=== PATIENT | male | born 1995 | race Caucasian/White ===

== ENCOUNTER 2018-01-30 08:31 | Day surgery (SDC) | payer BC ==
[2018-01-29 13:02] VITALS: BMI 25.9
--- NOTE | 2018-01-29 18:28 | HP ---
HISTORY OF PRESENT ILLNESS 22 year-old male with no significant PMH presents for a pre-op evaluation. Patient is scheduled for a left heel excision of a foreign body. PCP: [facility], sees medics as needed Prior Medical History None Prior Surgical History None Recent travel: [facility] in past month Family History: mother and father a&w; two sisters a&w Social History: student at [employer] and member of [place] [employer] Smoking: quit summer 2016 Alcohol: social beer Drugs: no REVIEW OF SYSTEMS CONSTITUTIONAL: Absent: fever, chills, diaphoresis, generalized weakness, malaise, loss of appetite, weight change HEENT: Absent: rhinorrhea, nasal congestion, throat pain, throat swelling, difficulty swallowing, mouth swelling, ear pain, eye pain, visual changes CARDIOVASCULAR: Absent: chest pain, syncope, palpitations, irregular heart rate, lightheadedness , peripheral edema RESPIRATORY: Absent: cough, shortness of breath, dyspnea with exertion, orthopnea, wheezing, stridor, hemoptysis GASTROINTESTINAL: Absent: abdominal pain, abdominal distension, nausea, vomiting, diarrhea, constipation, melena, hematochezia GENITOURINARY: Absent: dysuria, frequency, urgency, hesitancy, hematuria, flank pain, genital pain MUSCULOSKELETAL: +intermittent stinging pain left heel, had infection with swelling which resolved after PO antibiotics Absent: myalgia, arthralgia, joint swelling, back pain, neck pain SKIN: Absent: rash, itching, pallor HEMATOLOGIC/IMMUNOLOGIC: Absent: easy bleeding, easy bruising, lymphadenopathy, frequent infections ENDOCRINE: Absent: unexplained weight gain, unexplained weight loss, heat intolerance, cold intolerance NEUROLOGIC: Absent: headache, focal weakness or paresthesias, dizziness, unsteady gait, seizure, mental status changes, bladder or bowel incontinence PSYCHIATRIC: Absent: anxiety, depression, suicidal or homicidal ideation, hallucinations. PHYSICAL EXAMINATION: Vitals: T 97.6, BP 113/55, p75, SpO2 99% room air GENERAL: Awake, alert, and fully oriented, in no acute distress. HEAD: Normal with no signs of trauma. EYES: Pupils equal, round and reactive to light, extraocular movements intact, sclera anicteric, conjunctiva clear. No lid lag. EARS, NOSE, THROAT: Ears normal, nares patent, oropharynx clear without exudates. Moist mucous membranes. NECK: Normal range of motion, supple without lymphadenopathy, JVD, or masses. LUNGS: Breath sounds equal, clear to auscultation bilaterally. No wheezes, and no crackles. No accessory muscle use. HEART: Regular rate and rhythm, normal S1 and S2 without murmur, rub or gallop. ABDOMEN: Soft, nontender, not distended, normoactive bowel sounds, no guarding, no rebound, no masses. No hepatomegaly or splenomegaly. MUSCULOSKELETAL: Normal range of motion at all joints. No bony deformities or tenderness. No CVA tenderness. UPPER EXTREMITIES: 2+ pulses, warm, well-perfused. No cyanosis. No clubbing. No peripheral edema. LOWER EXTREMITIES: 2+ pulses, warm, well-perfused. No calf tenderness. No peripheral edema LEFT HEEL: small scab on top of firm tissue; epidermal layer sloughed off; no erythema, no warmth, no tenderness NEUROLOGICAL: Cranial nerves II-XII intact. Normal speech. Normal gait. Walks with left boot. PSYCHIATRIC: Cooperative. Good eye contact. Appropriate mood and affect. SKIN: Warm, dry, normal turgor, no rashes or lesions noted, normal capillary refill. ASSESSMENT/PLAN: 22 year-old male with no significant PMH scheduled for left heel incision and removal of a foreign body. Left heel foreign body --for incision and removal --on no regular medications --no previous exposure to anesthesia --no cardiac history; not hypertensive --no identified familial risk factors
[~2018-01-30 08:31] MED LIST: BUPIVACAINE HCL/PF 0.25% (2.5MG/ML) 10 ML VIAL IJ ONE
[2018-01-30] MEDS ORDERED: BUPIVACAINE HCL/PF 0.25% (2.5MG/ML) 10 ML VIAL ONE (12:04)
[2018-01-30] MEDS ORDERED: LIDOCAINE HCL 2% (20ML MULTI-DOSE VIAL) NR ONE (12:05)
[2018-01-30] MEDS ORDERED: MIDAZOLAM HCL 2 MG/2 ML SINGLE DOSE VIAL ONE ×2 (12:13)
[2018-01-30] MEDS ORDERED: PROPOFOL 20 ML ONE (12:13)
[2018-01-30] MEDS ORDERED: LIDOCAINE HCL 2% (50ML VIAL) INF ONE (12:26)
[2018-01-30] MEDS ORDERED: BUPIVACAINE HCL/PF 0.25% (2.5MG/ML) 10 ML VIAL IJ ONE (13:04)
[2018-01-30] MEDS ORDERED: ONDANSETRON 4 MG/2 ML VIAL IVPUSH PRN (13:22)
[2018-01-30] MEDS ORDERED: oxyCODONE HCL 5 MG TABLET PO PRN (13:22)
[2018-01-30] MEDS ORDERED: IBUPROFEN 800 MG/8 ML IJ IVPB PRN (13:22)
[2018-01-30] MEDS ORDERED: LACTATED RINGERS SOLUTION 1,000 ML IV SCH (13:30)
[2018-01-30 14:12] VITALS: TEMP 98.1
--- NOTE | 2018-01-30 15:04 | OP ---
DATE OF OPERATION: 01/30/2018 SURGEON: Mayco Sorensen DPM FOOD PREPARATION WORKER: PREOPERATIVE DIAGNOSIS: Left foot foreign body, plantar heel, and excision of scar tissue. POSTOPERATIVE DIAGNOSIS: Left foot foreign body, plantar heel, and excision of scar tissue. PROCEDURE: Left foot plantar heel foreign body removal and excision of scar tissue. ESTIMATED BLOOD LOSS: 1 mL HEMOSTASIS: Pneumatic ankle tourniquet 250 mmHg. ANESTHESIA: MAC with local anesthesia. Patient was brought to the operating room table and placed in a supine position. After adequate IV sedation was administered, local anesthesia of 1% lidocaine plain 18 mL was administered to the left tibial nerve. The left foot was then draped and prepped in the usual aseptic fashion, and after exsanguination and careful placement of the ankle of cast passing, the pneumatic ankle tourniquet was inflated to 250 mmHg. At this time, a curvilinear incision was made on the plantar heel aspect and the incision was deepened through subcutaneous tissue and a semi-elliptical incision was made using number-15 blade. The scar tissue and foreign body were removed in toto and passed for specimen. The surgical site was then flushed with normal saline solution and the subcutaneous tissue was reapproximated using 3-0 Vicryl and the skin was reapproximated using 4-0 nylon in vertical mattress suture fashion. At this time, the tourniquet was deflated, and a prompt hyperemic response was noted to the left foot. The surgical site was then dressed with Adaptic and 4 x 4's and Jaqueline and Brian. Patient tolerated the anesthesia and procedure well and was brought back to PACU in good condition. , dictating for SAMUEL Ca DPM /[id number]
[2018-01-30 15:29] VITALS: BP 119/55; PULSE 75
--- NOTE | 2018-01-31 17:07 | PATH ---
Surgical Pathology Report Patient Name: CITLALLI LAZAR Med. Rec. #: [id number] /Age/Gender: 1995 (Age: 22) / M Account: [id number] Location: [facility] SURGICAL Taken: 01/30/2018 Received: 01/30/2018 Reported: 01/31/2018 Physicians: Mayco Sorensen DPM Specimen(s) Received SCAR TISSUE AND FOREIGN BODY, LEFT FOOT Clinical History Foreign body and scar left foot Final Diagnosis FOOT, LEFT, SCAR TISSUE AND FOREIGN BODY, EXCISION: SKIN AND UNDERLYING SOFT TISSUE WITH CHRONIC INFLAMMATION AND DERMAL FIBROSIS CONSISTENT WITH SCAR. Electronically Signed Wendy Muñoz M.D. Gross Description Received in formalin labeled "scar tissue and foreign body left foot," is a 2.5 x 0.6 cm grey, unoriented skin ellipse excised to depth of 0.6 cm. The epidermal surface displays a 0.3 x 0.2 cm brown pigmented area. No discrete foreign body is identified within the specimen or the container. Angio Technologist sections are submitted in one cassette. /01/30/201801/30/2018
== END 2018-01-30 16:16 | disposition home or self-care (01) ==
LOC: JASU-SURG 08:31
PROVIDERS: ATTEND Podiatrist Foot Surgery
PROC: 0JBR0ZZ Excision of Left Foot Subcutaneous Tissue and Fascia, Open Approach (ICD-10-PCS; principal; 2018-01-30 10:30)
DX: M79.5 Residual foreign body in soft tissue (principal)
CPT/HCPCS: 88304-TC; 94760